=== PATIENT | male | born 1990 | race Caucasian/White ===

== ENCOUNTER 2017-09-07 12:08 | Emergency (ER) | payer MEDICAID ==
[2017-09-07 12:22] VITALS: TEMP 98.2
--- NOTE | 2017-09-07 12:23 | CPEKG ---
Heart Rate: 77 RR Interval: 779 P-R Interval: 160 QRSD Interval: 92 QT Interval: 372 QTC Interval: 421 P Dres[place]: 74 QRS [place]: 105 T Wave [place]: 64 EKG Severity - OTHERWISE NORMAL ECG - EKG Impression: SINUS RHYTHM EKG Impression: BORDERLINE RIGHT AXIS DEVIATION EKG Impression: ST ELEV, PROBABLE NORMAL EARLY REPOL PATTERN Electronically Signed By: Guerita Locke 07-Sep-2017 15:03:37
[2017-09-07 12:36] LABS: % IMMATURE GRANULYOCYTES 0.2 % (0.0-1.1); ABSOLUTE IMMATURE GRANULOCYTES 0.01 10^3/uL (0.00-0.10); ADD DIFF? NO; ADD MORPH? NO; ADD SCAN? NO; ATYPICAL LYMPHOCYTE FLAG 10 (0-99); FRAGMENT RBC FLAG 0 (0-99); HEMATOCRIT 42.6 % (40.0-51.0); HEMOGLOBIN 14.3 g/dL (13.7-17.5); LEFT SHIFT FLG 0 (0-99); LIPEMIA HEMOLYSIS FLAG 80 (0-99); MEAN CELL HEMOGLOBIN 29.9 pg (27.9-34.1); MEAN CELL HEMOGLOBIN CONCENTR. 33.6 g/dL (32.4-36.7); MEAN CELL VOLUME 88.9 fL (81.5-99.8); MEAN PLATELET VOLUME 10.7 fL (8.7-11.7); PLATELET CLUMPS FLAG 10 (0-99); PLATELET COUNT 243 10^3/uL (150-400); RED BLOOD CELL COUNT 4.79 10^6/uL (4.40-6.38); RED CELL DISTRIBUTION WIDTH 12.8 % (11.5-15.2)
[2017-09-07 12:50] LABS: ANION GAP 15 mEq/L (8-16); CALCIUM 9.7 mg/dL (8.5-10.4); CARBON DIOXIDE 26 mEq/l (22-31); CHLORIDE 104 mEq/L (97-110); CREATININE 0.8 mg/dL (0.7-1.3); GLOMERULAR FILTRATION RATE > 60; GLUCOSE 92 mg/dL (70-100); POTASSIUM 4.2 mEq/L (3.5-5.2); SODIUM 145 mEq/L (134-144)
[2017-09-07 13:02] LABS: TROPONIN I < 0.012 ng/mL (0.000-0.034)
--- NOTE | 2017-09-07 13:27 | EDPHY ---
H & P Time Seen by Provider: 09/07/17 13:13 HPI/ROS: CHIEF COMPLAINT: Left-sided chest pain HISTORY OF PRESENT ILLNESS: 27-year-old male presents with left-sided chest pain. Onset of chest pain yesterday evening. The pain is localized to the left side of his chest and increases with deep inspiration. He has been carrying his 35 lb backpack frequently over his left shoulder. No associated cough, shortness of breath or fever. REVIEW OF SYSTEMS: Constitutional: No fever, no chills Eyes: No visual changes ENT: No sore throat Respiratory: No cough, no shortness of breath Gastrointestinal: No nausea, no vomiting, no abdominal pain Genitourinary: No hematuria, no dysuria Musculoskeletal: No leg pain or swelling Skin: No rash Neurological: No headache, no weakness Psychiatric: No depression Past Medical/Surgical History: Denies Social History: Homeless Smoking Status: Heavy smoker Physical Exam: General Appearance: Alert, pleasant Eyes: Pupils equal and round, no conjunctival pallor or injection ENT, Mouth: Mucous membranes moist Neck: Normal inspection Respiratory: tender over the left pectoralis musculature, Lungs are clear to auscultation Cardiovascular: Regular rate and rhythm Gastrointestinal: Abdomen is soft and nontender Neurological: A&O, nonfocal, normal gait Skin: Warm and dry, no rash Extremities: Nontender, no pedal edema Psychiatric: Mood and affect normal Constitutional: Initial Vital Signs Temperature (C) 36.8 C 09/07/17 12:17 Heart Rate 93 09/07/17 12:17 Respiratory Rate 16 09/07/17 12:17 Blood Pressure 127/71 H 09/07/17 12:17 O2 Sat (%) 98 09/07/17 12:17 O2 Delivery Mode Room Air Allergies/Adverse Reactions: No Known Allergies Allergy (Unverified 09/07/17 12:21) Home Medications: Medication Instructions Recorded NK [No Known Home Meds] 09/07/17 Medical Decision Making - Diagnostics EKG Interpretation: EKG independently reviewed by me reveals normal sinus rhythm, rate 77, J point elevation, no ST or T segment changes. Interpretation: Normal EKG Imaging Results: Imaging Impressions Chest X-Ray 09/07/17 12:30 Impression: No acute intrathoracic abnormality. ED Course/Re-evaluation: This patient presents with left-sided chest pain. Stat EKG reveals no evidence of ischemia or pericarditis. Chest x-ray reveals no evidence of pneumothorax or pneumonia. Likely musculoskeletal etiology of pain, especially given physical exam finding of left-sided chest wall tenderness. Ibuprofen 600 mg orally given. Chest pain precautions given. Differential Diagnosis: Differential diagnosis includes though it is not limited to pneumonia, pneumothorax, pulmonary embolism, aortic dissection, pericarditis, acute coronary syndrome. - Data Points Laboratory Results: Laboratory Results 09/07/17 12:20 09/07/17 12:20 09/07/17 09/07/17 12:20 12:20 WBC 6.17 10^3/uL 10^3/uL (3.80-9.50) RBC 4.79 10^6/uL 10^6/uL (4.40-6.38) Hgb 14.3 g/dL g/dL (13.7-17.5) Hct 42.6 % % (40.0-51.0) MCV 88.9 fL fL (81.5-99.8) MCH 29.9 pg pg (27.9-34.1) MCHC 33.6 g/dL g/dL (32.4-36.7) RDW 12.8 % % (11.5-15.2) Plt Count 243 10^3/uL 10^3/uL (150-400) MPV 10.7 fL fL (8.7-11.7) Neut % (Auto) 61.2 % % (39.3-74.2) Lymph % (Auto) 28.5 % % (15.0-45.0) [place] % (Auto) 6.8 % % (4.5-13.0) Eos % (Auto) 2.3 % % (0.6-7.6) Baso % (Auto) 1.0 % % (0.3-1.7) Nucleat RBC Rel Count 0.0 % % (0.0-0.2) Absolute Neuts (auto) 3.78 10^3/uL 10^3/uL (1.70-6.50) Absolute Lymphs (auto) 1.76 10^3/uL 10^3/uL (1.00-3.00) Absolute Monos (auto) 0.42 10^3/uL 10^3/uL (0.30-0.80) Absolute Eos (auto) 0.14 10^3/uL 10^3/uL (0.03-0.40) Absolute Basos (auto) 0.06 10^3/uL 10^3/uL (0.02-0.10) Absolute Nucleated RBC 0.00 10^3/uL 10^3/uL (0-0.01) Immature Gran % 0.2 % % (0.0-1.1) Immature Gran # 0.01 10^3/uL 10^3/uL (0.00-0.10) Sodium 145 mEq/L H mEq/L (134-144) Potassium 4.2 mEq/L mEq/L (3.5-5.2) Chloride 104 mEq/L mEq/L (97-110) Carbon Dioxide 26 mEq/l mEq/l (22-31) Anion Gap 15 mEq/L mEq/L (8-16) BUN 13 mg/dL mg/dL (7-23) Creatinine 0.8 mg/dL mg/dL (0.7-1.3) Estimated GFR > 60 Glucose 92 mg/dL mg/dL (70-100) Calcium 9.7 mg/dL mg/dL (8.5-10.4) Troponin I < 0.012 ng/mL ng/mL (0.000-0.034) Departure - Departure Disposition: Home, Routine, Self-Care Clinical Impression: Chest wall pain Condition: Good Instructions: Chest Wall Pain (ED) Additional Instructions: Ibuprofen 600 mg 3 times daily while the pain persists. [facility] has walk-in appointments for the homeless at the following days/locations. No appointment is needed. Tuesday 8-10 am @ [facility] 11 AM-1 PM @ [facility] Tuesday 8-10:30 AM @ [facility] Tuesday 8-10 AM @ [facility] 2-4 PM @ [facility] Tuesday 8-10 AM @ [facility] Referrals: [facility],. [Clinic] - As per Instructions
[2017-09-07] MEDS ORDERED: IBUPROFEN 600 MG TAB PO ONE (13:28)
[2017-09-07 13:48] VITALS: BP 111/66; PULSE 79; RESP 18; O2SAT 99
== END 2017-09-07 13:53 | disposition home or self-care (01) ==
DX: R07.89 Other chest pain (principal); F17.200 Nicotine dependence, unspecified, uncomplicated

== ENCOUNTER 2017-10-05 01:33 | Emergency (ER) | payer MEDICAID ==
[2017-10-05 01:52] VITALS: TEMP 98.2
[2017-10-05] MEDS ORDERED: CLINDAMYCIN 150MG PREPACK#6 BTL TAKEHOME ONE (02:47)
[2017-10-05] MEDS ORDERED: CLINDAMYCIN 150 MG CAP PO ONE (02:47)
--- NOTE | 2017-10-05 02:47 | EDPHY ---
H & P Stated Complaint: POS INGROWN NAIL INFX/R KNUCKLE SCRAPE Time Seen by Provider: 10/05/17 02:18 HPI/ROS: HPI The patient presents with left finger pain and swelling which has been present for the last several days. He has noticed some pus draining from his nail bed. The swelling has gotten severe and is achy in nature. He has not had a fever or chills, nausea or vomiting. 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 REVIEW OF SYSTEMS Constitutional: No fever, no chills. Musculoskeletal: No back pain. Skin: No rashes. Neurological: No headache. PMHx: History of MR ARNETT Soc Hx: Transient, works on bikes FHx: PHYSICAL General Appearance: Alert, no distress Eyes: Pupils equal and round no pallor or injection ENT, Mouth: Mucous membranes moist Respiratory: Thing for doubly Neurological: A&O, moves all extremities Skin: Warm and dry, no rashes Musculoskeletal: Neck is supple non tender Extremities: Right 4th digit with erythema surrounding the nail bed with some pus draining Psychiatric: Patient is oriented X 3, there is no agitation Source: Patient Exam Limitations: No limitations - Personal History Current Tetanus Diphtheria and Acellular Pertussis (TDAP): Yes Tetanus Vaccine Date: LESS THAN 10 YEARS - Medical/Surgical History Hx Asthma: No Hx Chronic Respiratory Disease: No Hx Diabetes: No Hx Cardiac Disease: No Hx Renal Disease: No Hx Cirrhosis: No Hx Alcoholism: No Hx HIV/AIDS: No Hx Splenectomy or Spleen Trauma: No Other PMH: ortho fx., meth user, and smokes, " - Social History Smoking Status: Heavy smoker Constitutional: Initial Vital Signs Temperature (C) 36.8 C 10/05/17 01:50 Heart Rate 108 H 10/05/17 01:50 Respiratory Rate 16 10/05/17 01:50 Blood Pressure 128/72 H 10/05/17 01:50 O2 Sat (%) 93 10/05/17 01:50 O2 Delivery Mode Room Air Allergies/Adverse Reactions: No Known Allergies Allergy (Unverified 09/07/17 12:21) Home Medications: Medication Instructions Recorded Clindamycin HCl [Clindamycin] 300 mg PO TID #20 cap 10/05/17 Medical Decision Making Differential Diagnosis: This is a 27-year-old healthy male, history of MR ARNETT who presents with paronychia of his left hand. In the emergency department, digital block was performed of the left 4th digit with lidocaine 1%, total of 1.5 mL. Using a 15 blade scalpel the lateral edge of the nail bed was incised with removal of some fluid. The patient was counseled on wound care including warm water soaks twice a day. Because of history MR ARNETT, I will start him on clindamycin. - Data Points Medications Given: Discontinued Medications Clindamycin (Clindamycin) 150 mg PO EDNOW ONE PRN Reason: Protocol Stop: 10/05/17 02:48 Last Admin: 10/05/17 03:04 Dose: 150 mg Clindamycin (Cleocin 150 Mg Prepack#6) 1 btl TAKEHOME EDNOW ONE PRN Reason: Protocol Stop: 10/05/17 02:48 Last Admin: 10/05/17 03:04 Dose: 1 btl Departure - Departure Disposition: Home, Routine, Self-Care Clinical Impression: Paronychia of finger of left hand Condition: Good Instructions: Clindamycin (By mouth), Paronychia (ED) Referrals: [facility] [Outside] - As per Instructions Prescriptions: Clindamycin HCl [Clindamycin] 300 mg PO TID #20 cap
[2017-10-05 03:09] VITALS: BP 128/68; PULSE 102; RESP 18; O2SAT 96
== END 2017-10-05 03:07 | disposition home or self-care (01) ==
PROC: 0H9GXZZ Drainage of Left Hand Skin, External Approach (ICD-10-PCS; principal; 2017-10-05)
DX: L03.012 Cellulitis of left finger (principal); F17.200 Nicotine dependence, unspecified, uncomplicated

== ENCOUNTER 2018-01-31 03:33 | Emergency (ER) | payer MEDICAID ==
[2018-01-31] MEDS ORDERED: IPRATROPIUM/ALBUTEROL 3 ML DEYVIAL IH ONE (03:52)
--- NOTE | 2018-01-31 04:06 | EDPHY ---
H & P Stated Complaint: phlegm-cough for since getting out of snf Time Seen by Provider: 01/31/18 03:39 HPI/ROS: HPI The patient presents with cough which has been present for the last 3 days which started slowly and is associated with congestion though is a nonproductive cough. He also has rhinorrhea. He was released from snf after a 40 Day Stay a few days ago. He has not had any fevers, night sweats, weight loss. He does have a half pack per day smoking history. He is currently homeless.. REVIEW OF SYSTEMS Constitutional: No fever, no chills. Eyes: No discharge. ENT: No sore throat. Cardiovascular: No chest pain, no palpitations. Respiratory: Positive for cough, no shortness of breath. Gastrointestinal: No abdominal pain, no vomiting. Genitourinary: No hematuria. Musculoskeletal: No back pain. Skin: No rashes. Neurological: No headache. PMHx: Healthy Soc Hx: Homeless, history of methamphetamine use PHYSICAL General Appearance: Alert, no distress Eyes: Pupils equal and round no pallor or injection ENT, Mouth: Mucous membranes moist Respiratory: There are no retractions, lungs are clear to auscultation Cardiovascular: Regular rate and rhythm Gastrointestinal: Abdomen is soft and non-tender, no masses, bowel sounds normal Neurological: A&O, moves all extremities Skin: Warm and dry, no rashes Musculoskeletal: Neck is supple non tender Extremities: symmetrical, full range of motion Psychiatric: Patient is oriented X 3, there is no agitation - Personal History Current Tetanus Diphtheria and Acellular Pertussis (TDAP): Yes Tetanus Vaccine Date: LESS THAN 10 YEARS - Medical/Surgical History Hx Asthma: No Hx Chronic Respiratory Disease: No Hx Diabetes: No Hx Cardiac Disease: No Hx Renal Disease: No Hx Cirrhosis: No Hx Alcoholism: No Hx HIV/AIDS: No Hx Splenectomy or Spleen Trauma: No Other PMH: ortho fx., meth user, and smokes, " - Social History Smoking Status: Heavy smoker Constitutional: Initial Vital Signs Temperature (C) 37 C 01/31/18 03:35 Heart Rate 92 01/31/18 03:35 Respiratory Rate 16 01/31/18 03:35 Blood Pressure 113/84 H 01/31/18 03:35 O2 Sat (%) 96 01/31/18 03:35 O2 Delivery Mode Room Air Allergies/Adverse Reactions: No Known Allergies Allergy (Unverified 01/31/18 03:35) Home Medications: Medication Instructions Recorded Benzonatate [Tessalon Pearles (RX)] 100 mg PO Q6H PRN #20 cap 01/31/18 Medical Decision Making - Diagnostics Imaging Results: Chest x-ray two view shows no cardiomegaly, no infiltrate, no effusion, interpreted by me, radiology interpretation is pending. Imaging: I viewed and interpreted images myself Differential Diagnosis: 27-year-old male who presents with 3 days of cough and rhinorrhea. On exam, vital signs are normal, oxygenation is normal. Lungs sound clear. Differential diagnosis includes pneumonia, bronchitis, URI, less likely tuberculosis given no constitutional symptoms. In the emergency department, patient received an albuterol nebulizer with some improvement in his symptoms. Chest x-ray was performed and was unremarkable. He will be discharged home with an albuterol inhaler and instructions for smoking cessation. I feel he is likely suffering from a URI. - Data Points Medications Given: Discontinued Medications Albuterol/Ipratropium (Duoneb) 3 ml IH EDNOW ONE Stop: 01/31/18 03:53 Last Admin: 01/31/18 03:56 Dose: 3 ml Departure - Departure Disposition: Home, Routine, Self-Care Clinical Impression: Cough Upper respiratory infection Qualifiers: URI type: unspecified URI Qualified Code(s): J06.9 - Acute upper respiratory infection, unspecified Condition: Good Instructions: How to Stop Smoking (ED), Acute Cough (ED) Additional Instructions: I recommend that you stop smoking cigarettes as this is contributing to your cough most likely. You should return to the emergency department if your worse. Otherwise you should follow up with the [facility]. Referrals: [facility],. [Clinic] - As per Instructions Prescriptions: Benzonatate [Tessalon Pearles (RX)] 100 mg PO Q6H PRN #20 cap PRN Reason: Cough, Mild
[2018-01-31] MEDS ORDERED: ALBUTEROL INH PREPACK MDI TAKEHOME ONE (04:29)
[2018-01-31 04:31] VITALS: BP 121/77
== END 2018-01-31 04:43 | disposition home or self-care (01) ==
DX: J06.9 Acute upper respiratory infection, unspecified (principal); F17.200 Nicotine dependence, unspecified, uncomplicated

== ENCOUNTER 2018-02-21 22:57 | Emergency (ER) | payer MEDICAID ==
[2018-02-21 23:03] VITALS: BP 131/90
[2018-02-21] MEDS ORDERED: ALBUTEROL INH PREPACK MDI TAKEHOME ONE (23:15)
--- NOTE | 2018-02-21 23:16 | EDPHY ---
H & P Stated Complaint: chest congestion, cough Time Seen by Provider: 02/21/18 23:05 HPI/ROS: Chief Complaint: Cough, congestion HPI: 27-year-old male presenting with 3-4 weeks of coughing congestion. Patient was seen here on the 1st of this month and was given an inhaler and a prescription for antibiotics. Unfortunately he lost the prescription. He has been using inhaler with some relief. He is a smoker of both cigarettes and marijuana. His cough is productive of greenish sputum. No fevers or chills. 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 ROS: 10 point Review of Systems is negative except as noted in the HPI. PMH: Denies Social History: Positive smoking, no alcohol, positive for smoking marijuana Family History: non-contributory Physical Exam: Gen: Awake, Alert, No Distress HEENT: Nose: no rhinorrhea Eyes: PERRLA, EOMI Mouth: Moist mucosa Neck: Supple, no JVD Chest: nontender, lungs clear to auscultation, he does have prolonged forced expiration with some mild diffuse wheezing with forced expiration as well, no focal rales or rhonchi Heart: S1, S2 normal, no murmur Abd: Soft, non-tender, no guarding Back: no CVA tenderness, no midline tenderness Ext: no edema, non-tender Skin: no rash Neuro: CN II-XII intact, Sensation grossly intact, Strength 5/5 in bilateral upper and lower extremities - Personal History Current Tetanus/Diphtheria Vaccine: Yes Tetanus Vaccine Date: LESS THAN 10 YEARS - Medical/Surgical History Hx Asthma: No Hx Chronic Respiratory Disease: No Hx Diabetes: No Hx Cardiac Disease: No Hx Renal Disease: No Hx Cirrhosis: No Hx Alcoholism: No Hx HIV/AIDS: No Hx Splenectomy or Spleen Trauma: No Other PMH: ortho fx., meth user, and smokes, " - Social History Smoking Status: Heavy smoker Constitutional: Initial Vital Signs Temperature (C) 36.9 C 02/21/18 22:58 Heart Rate 97 02/21/18 22:58 Respiratory Rate 18 02/21/18 22:58 Blood Pressure 131/90 H 02/21/18 22:58 O2 Sat (%) 95 02/21/18 22:58 O2 Delivery Mode Room Air Allergies/Adverse Reactions: No Known Allergies Allergy (Unverified 01/31/18 03:35) Home Medications: Medication Instructions Recorded Doxycycline Hyclate 100 mg PO BID #14 tablet 02/21/18 Medical Decision Making ED Course/Re-evaluation: A 27-year-old male with symptoms consistent with bronchitis. He is a smoker. He has not been improved with the last 2 weeks. Will give him albuterol inhaler with a spacer this time. Also started on some doxycycline. Will refer him to [facility] for follow-up. No findings consistent with pneumonia. I do not feel and chest x-ray is indicated today. Departure - Departure Disposition: Home, Routine, Self-Care Clinical Impression: Acute bronchitis Condition: Good Instructions: Acute Bronchitis (ED), Albuterol (By breathing) Additional Instructions: You may use the inhaler 1-2 puffs every 4 hr as needed for cough or wheeze. Always use a spacer device when you use your inhaler. Please take your full course of antibiotics. Follow up with the [facility] in 4-5 days for further evaluation. Return to the emergency department for increasing cough, difficulty breathing, fevers, chills, or any other concerns. Referrals: [facility],. [Clinic] - As per Instructions Prescriptions: Doxycycline Hyclate 100 mg PO BID #14 tablet
== END 2018-02-21 23:31 | disposition home or self-care (01) ==
DX: J20.9 Acute bronchitis, unspecified (principal); F17.200 Nicotine dependence, unspecified, uncomplicated

== ENCOUNTER 2018-04-03 23:11 | Emergency (ER) | payer MEDICAID ==
[2018-04-03 23:23] VITALS: BP 118/81
--- NOTE | 2018-04-03 23:40 | EDPHY ---
H & P Time Seen by Provider: 04/03/18 23:20 HPI/ROS: CHIEF COMPLAINT: "I think I have poison anna" HISTORY OF PRESENT ILLNESS: 27-year-old homeless male complaining of 3 days of diffuse itching, possible poison anna contact dermatitis after he found a tarp and wrapped himself up and was tarp shortly before going to long term a few days ago and then developed highly pruritic lesions. He has not taken a shower been able to wash his clothing or other belongings off of uroshiol oil. No involvement. No respiratory component. No burning of poison anna. PHYSICAL EXAM (Prior to examination, patient consented to physical exam, hands were washed and my usual and customary physical exam procedures followed) 1) GENERAL: Well-developed, well-nourished, alert and oriented. Appears to be in no acute distress. 2) HEAD: Normocephalic 3) HEENT: sclera anicteric 4) LUNGS: Breathing comfortably. 5) SKIN: On the patient's bilateral arms, left flank, few discrete spot on his bilateral lower extremity he has raised excoriated lesions with no evidence of cellulitic super infection. Smoking Status: Heavy smoker Constitutional: Initial Vital Signs Temperature (C) 36.6 C 04/03/18 23:21 Heart Rate 113 H 04/03/18 23:21 Respiratory Rate 16 04/03/18 23:21 Blood Pressure 118/81 H 04/03/18 23:21 O2 Sat (%) 97 04/03/18 23:21 O2 Delivery Mode Room Air Allergies/Adverse Reactions: No Known Allergies Allergy (Verified 04/03/18 23:21) Home Medications: Medication Instructions Recorded NK [No Known Home Meds] 04/03/18 MDM/Departure - MDM ED Course/Re-evaluation: Patient and I had a lengthy discussion, we discussed the risks versus benefits of a 21 day course of steroids. I do not think that the benefits outweigh the risks in this patient given the relatively small distribution, no airway involvement. We discussed importance of washing clothing and personal belongings, we discussed trying to avoid itching the area to avoid super infection. He currently has no evidence of super infection. Usual and customary discharge precautions and instructions provided. I saw this patient independently based on established practice protocols. Care of patient under supervision of secondary supervising physician Dr Foreman . - Depart Disposition: Home, Routine, Self-Care Clinical Impression: Poison anna dermatitis Condition: Good Instructions: Cold Compress or Soak (ED), Poison Anna (ED) Additional Instructions: Try to avoid itching the area, return to the ER if you develop painful red lesions Referrals: [facility],. [Clinic] - 2-3 days, call for appt.
[2018-04-03] MEDS ORDERED: diphenhydrAMINE 25 MG CAP PO ONE (23:41)
== END 2018-04-03 23:50 | disposition home or self-care (01) ==
DX: L23.7 Allergic contact dermatitis due to plants, except food (principal); F17.200 Nicotine dependence, unspecified, uncomplicated

== ENCOUNTER 2018-04-25 17:04 | Emergency (ER) | payer MEDICAID ==
[2018-04-25 17:15] VITALS: BP 107/76
--- NOTE | 2018-04-25 17:35 | EDPHY ---
H & P Stated Complaint: MULTIPLE LESIONS HANDS AND FEET/MOUTH ?MRSA Time Seen by Provider: 04/25/18 17:23 HPI/ROS: CHIEF COMPLAINT: Multiple open sores on hands and feet HISTORY OF PRESENT ILLNESS: 27-year-old male presents with multiple open sores on hands and feet. He recently had poison latonya and multiple excoriations related to the poison latonya. Over the past 2-3 weeks, he has had multiple open sores that will not heal. A few of these areas are now red and painful. No fever. History of MRSA. REVIEW OF SYSTEMS: complete 10 point ROS negative except at noted in the HPI - Personal History Current Tetanus Diphtheria and Acellular Pertussis (TDAP): Unsure Tetanus Vaccine Date: LESS THAN 10 YEARS - Medical/Surgical History Hx Asthma: No Hx Chronic Respiratory Disease: No Hx Diabetes: No Hx Cardiac Disease: No Hx Renal Disease: No Hx Cirrhosis: No Hx Alcoholism: No Hx HIV/AIDS: No Hx Splenectomy or Spleen Trauma: No Other PMH: ortho fx., meth user, and smokes, " - Social History Smoking Status: Heavy smoker - Physical Exam Exam: General Appearance: Alert, pleasant, disheveled Neurological: A&O, nonfocal, normal gait Skin: Warm and dry Extremities: Multiple open sores on the hands and feet, a few of which are tender and have adjacent erythema, just at the wound edges, no fluctuance Psychiatric: Mood and affect normal Constitutional: Initial Vital Signs Temperature (C) 36.6 C 04/25/18 17:13 Heart Rate 84 04/25/18 17:13 Respiratory Rate 16 04/25/18 17:13 Blood Pressure 107/76 04/25/18 17:13 O2 Sat (%) 97 04/25/18 17:13 O2 Delivery Mode Room Air Allergies/Adverse Reactions: No Known Allergies Allergy (Verified 04/25/18 17:12) Home Medications: Medication Instructions Recorded Sulfamethox/Tmp 800/160 mg 1 tab PO BID #14 tab 04/25/18 [Bactrim Ds] Medical Decision Making ED Course/Re-evaluation: Patient presents with multiple open sores on the hands and feet. He took a shower in the emergency department, as he has not had access to a shower in many days and is quite dirty. I think that with routine wound care, with soap and water and antibiotic ointment, most of these wounds will heal well. A few areas c/w early cellulitis. Rx for Bactrim. f/u [facility] Departure - Departure Disposition: Home, Routine, Self-Care Clinical Impression: Cellulitis Qualifiers: Site of cellulitis: extremity Site of cellulitis of extremity: lower extremity Laterality: unspecified laterality Qualified Code(s): L03.119 - Cellulitis of unspecified part of limb Condition: Good Instructions: Cellulitis (ED) Additional Instructions: Wash your hands and feet with soap and water 2-3 times daily. The [facility] has walk-in appointments for the homeless at the following days/locations. No appointment is needed. Tuesday 8-10 am @ [facility] 11 AM-1 PM @ [facility] Tuesday 8-10:30 AM @ [facility] Tuesday 8-10 AM @ [facility] 2-4 PM @ [facility] Tuesday 8-10 AM @ [facility] Prescriptions: Sulfamethox/Tmp 800/160 mg [Bactrim Ds] 1 tab PO BID #14 tab
== END 2018-04-25 18:05 | disposition home or self-care (01) ==
DX: L03.113 Cellulitis of right upper limb (principal); L03.114 Cellulitis of left upper limb; L03.115 Cellulitis of right lower limb; L03.116 Cellulitis of left lower limb; F17.200 Nicotine dependence, unspecified, uncomplicated

== ENCOUNTER 2018-07-31 18:52 | Emergency (ER) | payer MEDICAID ==
[2018-07-31] MEDS ORDERED: OFLOXACIN 0.3% SOLN PREPACK OPHT.BTL TAKEHOME ONE ×2 (19:30→19:33)
--- NOTE | 2018-07-31 19:31 | EDPHY ---
H & P Time Seen by Provider: 07/31/18 19:21 HPI/ROS: CHIEF COMPLAINT: Right eye discharge HISTORY OF PRESENT ILLNESS: 28-year-old immunocompetent male with no corrective lens use history complaining of less than 24 hr of right eye discharge, itching. No ocular pain. No pain with extraocular movements. No exposure to high speed projectiles. No fever or chills. No URI symptoms. No sore throat. PHYSICAL EXAM (Prior to examination, patient consented to physical exam, hands were washed and my usual and customary physical exam procedures followed) 1) GENERAL: Well-developed, well-nourished, alert and oriented. Appears to be in no acute distress. 2) HEAD: Normocephalic 3) HEENT: sclera anicteric 4) LUNGS: Breathing comfortably. [5) OCULAR EXAM: Visual Acuity: noted from Nurse's notes. Pupils:equal round and reactive to light EOMI Lids: no edema or swelling, upper and lower lids were everted and no foreign bodies were visualized Skin: no proptosis, no periorbital erythema or swelling, no vesicles, no pain with extraocular movements. Conjunctivae: [not injected, positive discharge Anterior chamber:normal, no hyphema or hypopyon Smoking Status: Heavy smoker Constitutional: Initial Vital Signs Temperature (C) 36.7 C 07/31/18 19:09 Heart Rate 82 07/31/18 19:09 Respiratory Rate 17 07/31/18 19:09 Blood Pressure 124/85 H 07/31/18 19:09 O2 Sat (%) 95 07/31/18 19:09 O2 Delivery Mode Room Air Allergies/Adverse Reactions: No Known Allergies Allergy (Verified 07/31/18 19:09) Home Medications: Medication Instructions Recorded Sulfamethox/Tmp 800/160 mg 1 tab PO BID #14 tab 04/25/18 [Bactrim Ds] MDM/Departure - MDM ED Course/Re-evaluation: More than likely right eye conjunctivitis. Doubt periorbital or orbital cellulitis. Plan will be discharge with Ocuflox drops and my usual and customary ophthalmological precautions instructions. All questions and concerns addressed by myself. I saw this patient independently based on established practice protocols. Care of patient under supervision of secondary supervising physician Dr Verdin . - Depart Disposition: Home, Routine, Self-Care Clinical Impression: Conjunctivitis Condition: Good Instructions: Conjunctivitis (ED), Ofloxacin (Into the eye) Additional Instructions: Return to the emergency department if you develop pain with eye movement, fevers , or any other symptoms that concern you Referrals: Vijay Moralez MD [Medical Doctor] - 2-3 days, call for appt.
[2018-08-01 03:27] VITALS: BP 132/68
== END 2018-07-31 19:38 | disposition home or self-care (01) ==
DX: H10.9 Unspecified conjunctivitis (principal); F17.200 Nicotine dependence, unspecified, uncomplicated

== ENCOUNTER 2018-12-21 12:40 | Emergency (ER) | payer MEDICAID ==
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
[2018-12-21] MEDS ORDERED: ACETAMINOPHEN 500 MG TAB PO ONE (13:30)
[2018-12-21 14:21] VITALS: BP 125/87
== END 2018-12-21 14:21 | disposition home or self-care (01) ==
DX: S00.31XA Abrasion of nose, initial encounter (principal); S60.512A Abrasion of left hand, initial encounter; S60.511A Abrasion of right hand, initial encounter; L55.9 Sunburn, unspecified; V19.9XXA Pedal cyclist (driver) (passenger) injured in unspecified traffic accident, initial encounter; Y93.55 Activity, bike riding

== ENCOUNTER 2019-01-15 21:30 | Emergency (ER) | payer MEDICAID ==
[2019-01-15 21:37] VITALS: BP 138/77
--- NOTE | 2019-01-15 21:41 | EDPHY ---
H & P Stated Complaint: wound check/care home med clear Time Seen by Provider: 01/15/19 21:40 HPI/ROS: HPI: This is a 28-year-old male who presents with Chief Complaint: Wound check, med clear Location: Left posterior knee Quality: sores Duration: Unknown Signs and Symptoms: no fever, no nausea, no vomiting, no diarrhea, no urinary symptoms, no chest pain, no shortness of breath, no wheezing, no cough, no sore throat, no neck stiffness, no joint pain, no swollen glands, no ear pain, no rash, no discharge Timing: Unknown Severity: Mild Context: Patient presents in the custody of [facility] with request for medical clearance. Patient's reporting that he has not eaten in 1 day and has a history of low blood sugar. He is requesting that we check his blood sugar. He denies any dizziness, nausea, vomiting. Patient admits to methamphetamine use. Patient noticed 2 sores on the posterior knee that have scabbed over with surrounding redness and warmth. No history of diabetes mellitus, MRSA infection. Modifying Factors: No local wound care provided Comment: ROS: A comprehensive 10 system review of systems is otherwise negative aside from elements mentioned in the history of present illness. MEDICAL/SURGICAL/SOCIAL HISTORY: Medical history: Methamphetamine user, orthopedic injuries Surgical history: Denies Social history: Heavy tobacco user. Family history noncontributory. CONSTITUTIONAL: Well-developed, well-nourished, polite and cooperative adult white male, awake and alert, no obvious distress HEENT: Atraumatic and normocephalic, PERRL, EOMI. Nares patent; no rhinorrhea; no nasal mucosal edema. Tympanic membranes clear. Oropharynx clear, no exudate and moist pink mucosa. Airway patent. No lymphadenopathy. No meningismus. Cardiovascular: Normal S1/S2, regular rate, regular rhythm, without murmur rub or gallop. PULMONARY/CHEST: Symmetrical and nontender. Clear to auscultation bilaterally. Good air movement. No accessory muscle usage. ABDOMEN: Soft, nondistended, nontender, no rebound, no guarding, no peritoneal signs, no masses or organomegaly. No CVAT. EXTREMITIES: 2/2 pulses, strength 5/5, posterior left knee shows two pencil eraser size scabbed abrasions with mild surrounding erythema. No fluctuance appreciated. Left KNEE: no effusion, no medial and lateral joint line tenderness, full extension to 180, flexion to 120. No pain with varus and valgus exam. No pain with anterior drawer or posterior drawer test. Extensor mechanism intact. no clubbing, no cyanosis or edema. NEUROLOGICAL: no focal neuro deficits. GCS 15. SKIN: Warm and dry, no erythema. Multiple tattoos present. Words in the center of his chest marked with silver sharpie noted. no rash. Good capillary refill. Source: Patient Exam Limitations: No limitations - Personal History Current Tetanus Diphtheria and Acellular Pertussis (TDAP): Yes Tetanus Vaccine Date: LESS THAN 10 YEARS - Medical/Surgical History Hx Asthma: No Hx Chronic Respiratory Disease: No Hx Diabetes: No Hx Cardiac Disease: No Hx Renal Disease: No Hx Cirrhosis: No Hx Alcoholism: No Hx HIV/AIDS: No Hx Splenectomy or Spleen Trauma: No Other PMH: ortho fx., meth user, and smokes, " - Social History Smoking Status: Heavy smoker Constitutional: Initial Vital Signs Temperature (C) 36.5 C 01/15/19 21:35 Heart Rate 93 01/15/19 21:35 Respiratory Rate 16 01/15/19 21:35 Blood Pressure 138/77 H 01/15/19 21:35 O2 Sat (%) 95 01/15/19 21:35 O2 Delivery Mode Room Air Allergies/Adverse Reactions: No Known Allergies Allergy (Verified 07/31/18 19:09) Home Medications: Medication Instructions Recorded Cephalexin [Keflex (*)] 500 mg PO TID #21 cap 01/15/19 Sulfamethox/Tmp 800/160 mg 1 tab PO BID #14 tab 01/15/19 [Bactrim Ds] Medical Decision Making ED Course/Re-evaluation: Vital signs reviewed and stable upon arrival. No systemic signs. Tetanus booster up-to-date. Area cleaned with soap and water, Hibiclens, bacitracin and clean sterile dressing applied No fluctuance to incise and drain. Given Keflex and Bactrim in the ER and prescription for the same Fingerstick blood sugar 124. No signs of hypoglycemia. No signs of neurovascular compromise/tenting of skin/compartment syndrome/ extremities and joints examined above and below area of concern and are neurovascularly intact/abscess/septic arthritis. This patient was seen under the supervision of my secondary supervising physician. I evaluated care for this patient with attending. Differential Diagnosis: Differential diagnosis includes but is not limited to abscess, cellulitis, septic arthritis, abrasion, induration, MRSA infection. Departure - Departure Disposition: Law Enforcement/Court/[facility] Clinical Impression: Methamphetamine abuse Infected leg abrasion Qualifiers: Encounter type: initial encounter Laterality: left Qualified Code(s): S80.812A - Abrasion, left lower leg, initial encounter; L08.9 - Local infection of the skin and subcutaneous tissue, unspecified; L08.9 - Local infection of the skin and subcutaneous tissue, unspecified Condition: Good Instructions: Cellulitis (ED) Additional Instructions: Keep the dressing dry and in place for 48 hours. After 48 hours, you may remove the dressing; wash the site daily with mild soap and water; then pat dry. Apply topical antibiotic ointment and keep covered with sterile dressing until fully healed. Take oral antibiotics as indicated. Do not skip a dose. Do not soak in a bathtub or go swimming until fully healed. Take Tylenol 650 mg every 4 hours and/or Ibuprofen 600 mg every 8 hours with food as needed for pain. Patient is medically cleared to be discharged to care home. See [facility] for follow-up instructions and prescriptions. Referrals: [facility],. [Clinic] - As per Instructions Prescriptions: Cephalexin [Keflex (*)] 500 mg PO TID #21 cap Sulfamethox/Tmp 800/160 mg [Bactrim Ds] 1 tab PO BID #14 tab
[2019-01-15] MEDS ORDERED: CEPHALEXIN 500MG PREPACK#4 BTL TAKEHOME ONE (21:46)
[2019-01-15] MEDS ORDERED: SULFAMET/TMP DS PREPACK#2 BTL TAKEHOME ONE (21:46)
== END 2019-01-15 21:55 ==
LOC: EDUNIT#
DX: F15.20 Other stimulant dependence, uncomplicated (principal); S80.812A Abrasion, left lower leg, initial encounter; L08.9 Local infection of the skin and subcutaneous tissue, unspecified